=== PATIENT | female | born 1990 | race African-American/Black ===

== ENCOUNTER 2016-08-25 05:43 | Emergency (ER) | payer OTHER ==
[~2016-08-25] VITALS: Ht 162.6 cm; Wt 50.0 kg
[2016-08-25 05:46] VITALS: BP 152/83; PULSE 62; RESP 16; TEMP 98.7; O2SAT 100
[2016-08-25] MEDS ORDERED: SODIUM CHLOR 0.9% 1000 ML INJ 1,000 ML IV ONE (06:15)
[2016-08-25] MEDS ORDERED: ONDANSETRON HCL 4 MG/2 ML VIAL IV ONE (06:15)
--- NOTE | 2016-08-25 06:15 | PD ---
HPI Chief Complaint: GI Complaint Time Seen by Provider: 06:01 Travel History International Travel<30 days: No Contact w/Intl Traveler<30days: No Traveled to known affect area: No History of Present Illness HPI The patient is a 26 year old female who presents to the [facility] emergency department with a history of abdominal pain that began again yesterday morning. She reports that the pain is present in bilateral lower quadrants of the abdomen. The character of the pain as a cramping sensation. She reports that it is intermittently moderately severe. She reports that she' s had problems with this type of pain associated with nausea, vomiting, and diarrhea since January 2014. She reports that she was previously having occurrences of this that lasts for 1-2 days every few months, however recently it is been a monthly occurrence. She recently was referred to Dr. Paige and yesterday underwent endoscopy by . She reports that since yesterday morning she's had a recurrence of nausea, vomiting, and diarrhea. Her last episode of vomiting was at 5 AM. Her last episode of diarrhea was at midnight. She reports that the stool is usually green to brown in color. She denies having any blood in her stool or mucus in her stool. She denies having any family history of inflammatory bowel disease. She denies having any specific food triggers for the symptoms. On review of systems, the patient denies any recent fevers, cough, congestion, neck pain, chest pain, shortness of breath, urinary symptoms, or neurologic symptoms. The patient reports that she does use cannabis on the weekends. LMP: 1 week ago. [facility] Past Medical History Narrative Medical The patient's past medical history otherwise is reportedly none. Medical History: Denies Significant Hx Diminished Hearing: No ?: Not LMP: 08/19/16 Past Surgical History Narrative Surgical The patient's past surgical history is reportedly none. Surgical History: No Previous Surgery Social History Alcohol Use: Yes (OCC) Tobacco Use: No Substance Use: Yes (cannabis on the weekend) Allergies-Medications (Allergen,Severity, Reaction): Coded Allergies: No Known Allergies (Unverified , 08/25/16) Reported Meds & Prescriptions Reported Meds & Active Scripts Active No Active Prescriptions or Reported Medications Review of Systems Except as stated in HPI: all other systems reviewed are Neg General / Constitutional: No: Fever Eyes: No: Visual changes HENT: No: Headaches Cardiovascular: No: Chest Pain or Discomfort Respiratory: No: Shortness of Breath Gastrointestinal: Positive: Nausea, Vomiting, Diarrhea, Abdominal Pain, Changes in Bowel Habits, No: Hematemesis, Hematochezia, Indigestion, Loss of Appetite Genitourinary: No: Dysuria Musculoskeletal: No: Pain Skin: No Rash Neurologic: No: Weakness, Focal Abnormalities, Change in Mentation, Slurred Speech, Sensory Disturbance Psychiatric: No: Depression Endocrine: No: Polydipsia Hematologic/Lymphatic: No: Easy Bruising Physical Exam Narrative General: The patient is well-developed well-nourished female in no acute distress. Head and Neck exam: Head is normocephalic atraumatic. Eyes: EOMI, pupils are equal round and reactive to light. Nose: Midline septum with pink mucous membranes Mouth: Dentition unremarkable. Moist mucus membranes. Posterior oropharynx is not erythematous. No tonsillar hypertrophy. Uvula midline. Airway patent. Neck: No palpable lymphadenopathy. No nuchal rigidity. No thyromegaly. Cardiovascular: Regular rate and rhythm without murmurs, gallops, or rubs. Lungs: Clear to auscultation bilaterally. No wheezes, rhonchi, or rales. Abdomen: Soft, with tenderness on palpation of bilateral lower quadrants of the abdomen, no other tenderness on palpation of the other quadrants of the abdomen. No guarding, rebound, or rigidity. No focal tenderness over McBurney's point. Normal bowel sounds are audible. Negative [place] sign. Extremities: No clubbing, cyanosis, or edema. 2+ pulses in all 4 extremities. No calf tenderness on palpation. Back: No costovertebral angle tenderness to palpation. Neurologic Exam: Grossly nonfocal. Skin Exam: No rash noted. Intact skin that is warm and dry. Data Data Last Documented VS Vital Signs Date Time Temp Pulse Resp B/P Pulse Ox O2 Delivery O2 Flow Rate FiO2 08/25/16 06:41 60 16 130/81 100 Room Air 08/25/16 05:46 98.7 Orders Complete Blood Count With Diff (08/25/16 06:11) Comprehensive Metabolic Panel (08/25/16 06:11) Lipase (08/25/16 06:11) Urinalysis - C+S If Indicated (08/25/16 06:11) Magnesium (Mg) (08/25/16 06:11) Iv Access Insert/Monitor (08/25/16 06:11) Ecg Monitoring (08/25/16 06:11) Oximetry (08/25/16 06:11) Sodium Chlor 0.9% 1000 Ml Inj (Ns 1000 M (08/25/16 06:15) Ondansetron Inj (Zofran Inj) (08/25/16 06:15) Ed Urine Pregnancytest Poc (08/25/16 06:11) Ct Abd/Pel W Iv Contrast(Rout) (08/25/16 06:36) [facility] Medical Decision Making Medical Screen Exam Complete: Yes Emergency Medical Condition: Yes Medical Record Reviewed: Yes Differential Diagnosis Viral versus bacterial gastroenteritis, versus inflammatory bowel disease, versus irritable bowel syndrome, versus colitis of undetermined origin, versus celiac disease, versus lactose intolerance, versus electrolyte arrangements, versus dehydration Narrative Course During the course of the patients emergency department visit, the patients history, examination, and differential diagnosis were reviewed with the patient. The patient had IV access obtained and blood work sent for analysis. The patient states on a copra processor with oximetry and blood pressure monitoring. A bedside test was negative. The patient denies ever having imaging done other than endoscopy and colonoscopy yesterday to further evaluate her abdominal pain. She reports that she is 1 to be scheduled for a CT scan. I recommended that we go ahead and proceed with a CT scan at this time to further evaluate. The patient was initially provided normal saline 1 L IV fluid bolus, Zofran 4 mg IV. The patients laboratory studies and radiological studies are pending at the conclusion of my shift. The patient's case will be checked out to the oncoming emergency physician to disposition based on the conclusion of the patient's workup. I anticipated the patient will be able to be discharged home with a prescription for nausea medication. The patient is instructed to avoid cannabis in the future as this could exacerbate her cyclic vomiting Diagnosis Primary Impression: Nausea, vomiting, and diarrhea Scripts No Active Prescriptions or Reported Meds Omayra Hernández MD Aug 25, 2016 06:15
[2016-08-25 06:41] VITALS: BP 130/81; PULSE 60; RESP 16; O2SAT 100
[2016-08-25 06:58] VITALS: BP 114/70; PULSE 78; RESP 16; O2SAT 100
[2016-08-25 07:01] LABS: AUTOMATED NEUTROPHIL # 7.6 TH/MM3 (1.8-7.7); BASOPHIL % 0.2 % (0.0-2.0); HEMATOCRIT 33.8 % (35.0-46.0); HEMO FLAGS DIFF FINAL; LYMPH % 7.3 % (9.0-44.0); LYMPHOCYTE # 0.6 TH/MM3 (1.0-4.8); MEAN CELL VOLUME 95.3 FL (80.0-100.0); MEAN CORPUSCULAR HEMOGLOBIN 32.7 PG (27.0-34.0); MEAN CORPUSCULAR HGB CONC 34.3 % (32.0-36.0); MONO % 2.4 % (0.0-8.0); NEUT % 90.1 % (16.0-70.0); PLATELET COUNT 192 TH/MM3 (150-450); RED BLOOD COUNT 3.55 MIL/MM3 (4.00-5.30); RED CELL DISTRIBUTION WIDTH 12.6 % (11.6-17.2); WHITE BLOOD COUNT 8.4 TH/MM3 (4.0-11.0)
[2016-08-25 07:13] LABS: ALT (GPT) 21 U/L (10-53); ANION GAP 12 MEQ/L (5-15); AST (GOT) 14 U/L (15-37); BICARBONATE 21.1 MEQ/L (21.0-32.0); BLOOD UREA NITROGEN 8 MG/DL (7-18); CHLORIDE 106 MEQ/L (98-107); GLOMERULAR FILTRATION RATE 150 ML/MIN (>89); MAGNESIUM 2.3 MG/DL (1.5-2.5); POTASSIUM 4.1 MEQ/L (3.5-5.1); SODIUM (NA) 139 MEQ/L (136-145)
[2016-08-25 07:15] LABS: ALKALINE PHOSPHATASE 49 U/L (45-117); TOTAL BILIRUBIN ADULT 0.4 MG/DL (0.2-1.0)
[2016-08-25] MEDS ORDERED: PROMETHAZINE INJ 25 MG/ML VIAL IM ONE (07:30)
[2016-08-25] MEDS ORDERED: IOHEXOL 350 MG/ML 10 ML VIAL (for RAD DIAG) IV ONE (07:46)
--- NOTE | 2016-08-25 08:25 | RADRPT ---
EXAM DATE/TIME: 08/25/2016 07:46 [place] COMPARISON: No previous studies available for comparison. INDICATIONS : Abdominal pain and vomiting. patient had endoscopy yesterday IV CONTRAST: 92 cc Omnipaque 350 (iohexol) IV ORAL CONTRAST: No oral contrast ingested. RADIATION DOSE: 4.62 CTDIvol (mGy) MEDICAL HISTORY : None SURGICAL HISTORY : None. ENCOUNTER: Initial ACUITY: 1 day PAIN SCALE: 5/10 LOCATION: abdomen TECHNIQUE: Volumetric scanning of the abdomen and pelvis was performed. Using automated exposure control and ad justment of the mA and/or kV according to patient size, radiation dose was kept as low as reasonably achievable to obtain optimal diagnostic quality images. DICOM format image data is available electro nically for review and comparison. FINDINGS: The limited portion of the lung base visualized is clear. The appearance of the liver, spleen, pancreas, adrenal glands and kidneys is within normal limits. Note is made of a small amount of pericholecystic fluid adjacent to the gallbladder. Ultrasound to fu rther assess the gallbladder wall may be warranted. There is fluid within the duodenum. Duodenal appears mildly dilated. The visualized loops of small an d large bowel are otherwise normal in appearance. No free intraperitoneal air is identified. The abdominal aorta is normal in caliber. There is no retroperitoneal adenopathy. Imaging through the pelvis demonstrates a small amount of free fluid within the low pelvis. No iliac or inguinal adenopathy is seen. No findings to indicate bowel structures are present. The visualized bony structures demonstrate degenerative changes but are otherwise intact. CONCLUSION: 1. No free intraperitoneal air identified. No findings to indicate bowel obstruction. 2. There is a small amount of pericholecystic fluid adjacent to the gallbladder wall. 3. Minimal free fluid within the pelvis. Sergio Augustine MD on August 25, 2016 at 8:17 Board Certified Radiologist. This report was verified electronically.
[2016-08-25] MEDS ORDERED: PROM1SUP7 RECTAL (08:51)
[2016-08-25] MEDS ORDERED: PROM25TA10 PO (08:51)
--- NOTE | 2016-08-25 08:51 | PD ---
Data Data Last Documented VS Vital Signs Date Time Temp Pulse Resp B/P Pulse Ox O2 Delivery O2 Flow Rate FiO2 08/25/16 06:58 78 16 114/70 100 Room Air 08/25/16 05:46 98.7 Orders Complete Blood Count With Diff (08/25/16 06:11) Comprehensive Metabolic Panel (08/25/16 06:11) Lipase (08/25/16 06:11) Magnesium (Mg) (08/25/16 06:11) Iv Access Insert/Monitor (08/25/16 06:11) Ecg Monitoring (08/25/16 06:11) Oximetry (08/25/16 06:11) Sodium Chlor 0.9% 1000 Ml Inj (Ns 1000 M (08/25/16 06:15) Ondansetron Inj (Zofran Inj) (08/25/16 06:15) Ed Urine Pregnancytest Poc (08/25/16 06:11) Ct Abd/Pel W Iv Contrast(Rout) (08/25/16 06:36) Promethazine Inj (Phenergan Inj) (08/25/16 07:30) Iohexol 350 Inj (Omnipaque 350 Inj) (08/25/16 07:46) Labs Laboratory Tests Test 08/25/16 06:35 White Blood Count 8.4 TH/MM3 Red Blood Count 3.55 MIL/MM3 Hemoglobin 11.6 GM/DL Hematocrit 33.8 % Mean Corpuscular Volume 95.3 FL Mean Corpuscular Hemoglobin 32.7 PG Mean Corpuscular Hemoglobin 34.3 % Concent Red Cell Distribution Width 12.6 % Platelet Count 192 TH/MM3 Mean Platelet Volume 7.4 FL Neutrophils (%) (Auto) 90.1 % Lymphocytes (%) (Auto) 7.3 % Monocytes (%) (Auto) 2.4 % Eosinophils (%) (Auto) 0.0 % Basophils (%) (Auto) 0.2 % Neutrophils # (Auto) 7.6 TH/MM3 Lymphocytes # (Auto) 0.6 TH/MM3 Monocytes # (Auto) 0.2 TH/MM3 Eosinophils # (Auto) 0.0 TH/MM3 Basophils # (Auto) 0.0 TH/MM3 CBC Comment DIFF FINAL Differential Comment Sodium Level 139 MEQ/L Potassium Level 4.1 MEQ/L Chloride Level 106 MEQ/L Carbon Dioxide Level 21.1 MEQ/L Anion Gap 12 MEQ/L Blood Urea Nitrogen 8 MG/DL Creatinine 0.59 MG/DL Estimat Glomerular Filtration 150 ML/MIN Rate Random Glucose 106 MG/DL Calcium Level 9.1 MG/DL Magnesium Level 2.3 MG/DL Total Bilirubin 0.4 MG/DL Aspartate Amino Transf 14 U/L (AST/SGOT) Alanine Aminotransferase 21 U/L (ALT/SGPT) Alkaline Phosphatase 49 U/L Total Protein 7.4 GM/DL Albumin 4.2 GM/DL Lipase 196 U/L [facility] Supervised Visit with LORNA: No Narrative Course Patient care assumed from Dr. Hernández at 07 100, this is a 26-year-old female presents emergency Department with nausea and vomiting secondary to a colonoscopy and endoscopy she had yesterday. Her initial lab workup is negative , I was asked to follow-up her CAT scan disposition her appropriately. CAT scan shows a minimal pericholecystic fluid, my repeat examination the patient's abdomen is benign, I compress fairly firmly on her right upper quadrant and not elicit any tenderness. There is no percussive no rebound tenderness and no Long sign is negative. The results of her CAT scan were discussed with her and recommended she follow up with her GI doctor. I prescribed anti-emetics for her and discussed return to ED criteria. Last 24 hours Impressions Abdomen/Pelvis CT 08/25/16 0636 Signed Impressions: Service Date/Time: Thursday, August 25, 2016 07:46 - CONCLUSION: 1. No free intraperitoneal air identified. No findings to indicate bowel obstruction. 2. There is a small amount of pericholecystic fluid adjacent to the gallbladder wall. 3. Minimal free fluid within the pelvis. Sergio Augustine MD Diagnosis Primary Impression: Nausea, vomiting, and diarrhea Referrals: Jolynn Paige MD Med/Other Pt SpecificInfo: Prescription(s) given Scripts Promethazine Supp (Phenergan Supp)25 Mg Supp25 Mg RECTAL Q6H PRN (NAUSEA OR VOMITING) #12 SUPP Ref 0 Prov:Hood Esquivel MD 08/25/16 Promethazine (Phenergan)25 Mg [id number] Mg PO Q6H PRN (NAUSEA OR VOMITING) #20 TAB Ref 0 Prov:Hood Esquivel MD 08/25/16 Disposition: 01 DISCHARGE HOME Condition: Stable Hood Esquivel MD Aug 25, 2016 08:51
== END 2016-08-25 09:08 | disposition home or self-care (01) ==
LOC: NEPE 05:43
DX: R11.2 Nausea with vomiting, unspecified (principal); R19.7 Diarrhea, unspecified; Z72.0 Tobacco use
CPT/HCPCS: 74177; 80053; 83690; 83735; 84703; 85025; 96361; 96372; 96374; 99285; J2405; J2550; J7030; Q9967